=== PATIENT | male | born 1950 | race Caucasian/White ===

== ENCOUNTER → 2016-12-19 | Outpatient (CLI) | payer BC ==
[~2016-12-19] MED LIST: ACET-732 PO; AMLO5TAB PO; ASPI-558 PO; CLON0.1T97 PO; CYCL-208 PO; DOCU-118 PO; DOXY150T3 PO; FISH1CAP29 PO; FLUT16SP12; GABA-218 PO; GADOBUTROL 10mMol/10ml INJECTION IV ONE; LISI-126 PO; LORA10TA7 PO; PANT40TA32 PO; PRED-221 PO; SALINE FLUSH 10ml SYRINGE ONE; ZOLP-113 PO; [UNRECOGNIZED DRUG - CODE]; [UNRECOGNIZED DRUG - CODE] OP; [UNRECOGNIZED DRUG - CODE] PO; [UNRECOGNIZED DRUG - CODE] PO; [UNRECOGNIZED DRUG - CODE] PO
--- NOTE | 2016-12-19 09:30 | DI ---
Indication: ITS.REASON: R20.2 NUMBNESS PROCEDURE: MRI CERVICAL SPINE W/WO CONTRA: Encounter: Initial Comparison: None Technique: Multiplanar multisequence MR imaging of the cervical spine was performed with and without contrast. Contrast: 8 mL Gadavist Findings: Alignment of the lumbar spine is within normal limits. No acute fracture or subluxation is seen. Bone marrow signal intensity is normal. Paraspinal soft tissues show no acute findings. No areas of concerning postcontrast enhancement. Cervical and visualized upper thoracic spinal cord signal intensity is normal. No evidence of a demyelinating lesion. Segmental analysis: C2-C3: Normal C3-C4: Normal C4-C5: Normal C5-C6: Central disk osteophyte effacing the thecal sac with mild central canal stenosis. Degenerative facet and uncovertebral changes resulting in moderate to severe right neural foraminal stenosis. No significant left foraminal narrowing. C6-C7: Central disk osteophyte effacing the left aspect of the thecal sac with mild central canal stenosis. Degenerative facet and uncovertebral changes resulting in mild left and moderate right neural foraminal stenosis. C7-T1: Normal Impression: Degenerative disk and facet disease at C5-C6 and C6-C7 with central canal and neural foraminal narrowing. .
== END ==
LOC: IMA 07:22
PROVIDERS: ATTEND Psychiatry & Neurology Clinical Neurophysiology
DX: M50.122 Cervical disc disorder at C5-C6 level with radiculopathy (principal); M50.123 Cervical disc disorder at C6-C7 level with radiculopathy; M47.22 Other spondylosis with radiculopathy, cervical region; R20.2 Paresthesia of skin
CPT/HCPCS: 72156; A9585